=== PATIENT | female | born 1970 | race Caucasian/White ===

== ENCOUNTER 2016-07-08 09:28 | Emergency (ER) | payer BC ==
[~2016-07-08] VITALS: Ht 177.8 cm; Wt 68.2 kg
[~2016-07-08 09:28] MED LIST: DOXYCYCLINE 10100 MG PO; METRONIDAZOLE500 MG PO; NO HOME MEDICATIONS; PERCOCET 325 MG1 TA2 PO
[2016-07-08 09:34] VITALS: BP 109/78; PULSE 70; TEMP 98.4
== END 2016-07-08 10:39 | disposition left against medical advice (07) ==
LOC: COL.ER 09:28
DX: R20.2 Paresthesia of skin (principal); Z53.21 Procedure and treatment not carried out due to patient leaving prior to being seen by health care provider; I10 Essential (primary) hypertension; F17.210 Nicotine dependence, cigarettes, uncomplicated; F41.9 Anxiety disorder, unspecified